=== PATIENT | female | born 1930 | race Caucasian/White ===

== ENCOUNTER 2017-04-11 09:13 | Inpatient (IN) | payer OTHER ==
[~2017-04-11] VITALS: Ht 149.9 cm; Wt 66.3 kg
[2017-04-11] MEDS ORDERED: LORAZEPAM0.5 MG PO (10:13)
[2017-04-11] MEDS ORDERED: PHENAZOPYRIDIN200 M3 PO (10:14)
[2017-04-11] MEDS ORDERED: LIPI20 PO (10:14)
[2017-04-11] MEDS ORDERED: LEVOTHYROXINE SODIUM PO (10:15)
[2017-04-11] MEDS ORDERED: SULFAMETHOXAZOL1 TA4 (10:17)
[2017-04-11 10:28] LABS: microscopic required? YES; urine erythrocyte 2+ (NEGATIVE)
[2017-04-11 10:35] LABS: BASOPHIL % 0.2 % (0-2); PLATELET COUNT 202 x10^3mcL (130-400); RED CELL DISTRIBUTION WIDTH 13.9 % (11.5-14.5)
[2017-04-11 11:00] LABS: CALCIUM 8.6 mg/dL (8.5-10.1); CARBON DIOXIDE 24.1 mmol/L (21-32); CHLORIDE SERUM 95 mmol/L (98-107); CREATININE SERUM 0.8 mg/dL (0.6-1.0); GLUCOSE SERUM 159 mg/dL (74-106); POTASSIUM SERUM 3.6 mmol/L (3.5-5.1); SODIUM SERUM 130 mmol/L (136-145)
[2017-04-11 11:04] LABS: ALKALINE PHOSPHATASE 102 U/L (46-116); ALT/SGPT 22 U/L (14-59); AST/SGOT 33 U/L (15-37); BILIRUBIN TOTAL 0.85 mg/dL (0.20-1.00); CHOLESTEROL 138 mg/dL (<200); TOTAL PROTEIN, SERUM 7.6 g/dL (6.4-8.2)
[2017-04-11 11:09] LABS: ALBUMIN 3.3 g/dL (3.4-5.0)
[2017-04-11 13:43] LABS: T3 TOTAL 0.59 ng/mL
[2017-04-11 13:53] LABS: MAGNESIUM 2.1 mg/dL (1.8-2.4)
[2017-04-11 13:55] LABS: CHOLESTEROL/HDL RATIO 1.7
[2017-04-11 14:03] LABS: FREE T4 1.22 ng/dL (0.76-1.46); FREE THYROXINE INDEX 3.6 ug/dL (1.4-4.5); T4(THYROXINE) 9.1 ug/dL (4.7-13.3)
[2017-04-11 14:32] VITALS: BP 154/68
[2017-04-11 17:02] VITALS: BP 107/56
[2017-04-11 21:19] VITALS: BP 108/43
[2017-04-12 05:30] VITALS: BP 127/50
[2017-04-12 07:10] LABS: BASOPHIL % 0.1 % (0-2); PLATELET COUNT 183 x10^3mcL (130-400); RED CELL DISTRIBUTION WIDTH 14.2 % (11.5-14.5)
[2017-04-12 07:25] LABS: CARBON DIOXIDE 23.6 mmol/L (21-32); CHLORIDE SERUM 104 mmol/L (98-107); CREATININE SERUM 0.9 mg/dL (0.6-1.0); GLUCOSE SERUM 102 mg/dL (74-106); MAGNESIUM 2.3 mg/dL (1.8-2.4); PHOSPHOROUS 2.8 mg/dL (2.5-4.9); POTASSIUM SERUM 3.9 mmol/L (3.5-5.1); SODIUM SERUM 138 mmol/L (136-145)
[2017-04-12 09:26] VITALS: BP 134/82
[2017-04-12 13:28] VITALS: BP 157/71
[2017-04-12] MEDS ORDERED: COL100 PO (13:42)
[2017-04-12] MEDS ORDERED: TYL325 PO (13:43)
[2017-04-12] MEDS ORDERED: LEVAQUIN250 M1 PO ×2 (13:44→16:31)
[2017-04-12] MEDS ORDERED: LAC PO (13:47)
[2017-04-12] MEDS ORDERED: ZOF4 PO (13:50)
[2017-04-12 13:55] VITALS: BP 157/71
== END 2017-04-12 16:50 | disposition home or self-care (01) | DRG 689 ==
LOC: ED 09:13 → DU 11:59
PROVIDERS: ADMIT Family Medicine
DX: N39.0 Urinary tract infection, site not specified (principal); G93.41 Metabolic encephalopathy; N17.0 Acute kidney failure with tubular necrosis; E87.1 Hypo-osmolality and hyponatremia; E44.1 Mild protein-calorie malnutrition; E86.0 Dehydration; F17.210 Nicotine dependence, cigarettes, uncomplicated; Z68.29 Body mass index [BMI] 29.0-29.9, adult
CPT/HCPCS: 82962; 83880; 84439; G0480; J0696; J1885; J7030; Q0092